=== PATIENT | female | born 1950 | race Two or more races ===

== ENCOUNTER 2025-04-09 02:40 | Emergency (ER) | payer MEDICARE, SELFPAY ==
[2025-04-09 02:41] VITALS: BMI 28.3
[2025-04-09 02:57] VITALS: BP 130/92; PULSE 83; RESP 19; TEMP 36.9; O2SAT 97
--- NOTE | 2025-04-09 03:02 | PD.EDALLER ---
ED Allergic Reaction RME/HPI General Chief complaint: Allergic Reaction Stated complaint: LIP SWELLING, ALLERGIC REACTION Time Seen by Provider: 04/09/25 02:58 Arrival date/time: 04/09/25 02:40 RME / HPI RME / HPI narrative: Dr. Turner?s Main ED Evaluation: 74yo female presents to the ED for complaints of facial swelling and generalized itching x 1 hour [employer]. Patient states she woke up at 0200 having itching throughout her body and noticed her lips were swollen. She denies any shortness of breath, rashes, or any other associated symptoms. Patient denies any history of similar symptoms. Related Data Previous Rx's ?Medication ?Instructions ?Recorded ibuprofen 800 mg tablet 800 mg PO TID PRN pain #30 tabs 07/05/19 gabapentin 300 mg capsule See Rx Instructions .Route 07/11/20 .COMPLEX #20 caps ibuprofen 800 mg tablet 800 mg PO TID PRN pain #30 tabs 07/11/20 canagliflozin 150 mg-metformin 500 1 tab PO BID #60 tabs 12/08/20 mg tablet (Invokamet) epinephrine 0.3 mg/0.3 mL 0.3 ml subcut PRN PRN 04/09/25 injection, auto-injector (EpiPen hypersensitivity reaction #1 applic 2-Teddy) Allergies Allergy/AdvReac Type Severity Reaction Status Date / Time No Known Allergies Allergy Verified 04/09/25 02:45 Review of Systems Review of Systems Systems Reviewed: All systems reviewed, normal except as documented Past Medical History Past Medical History NEUROLOGIC: Negative Seizures CARDIAC: Positive Hypertension; Negative Congestive Heart Failure RESPIRATORY: Negative Chronic Obstructive Pulmonary Disease (COPD) GENITOURINARY: Negative Renal Disease ENDOCRINE: Positive Diabetes Mellitus Type 2 (metformin); Negative Diabetes Mellitus Type 1 Social History SMOKING STATUS: Never smoker ED Exam Narrative Physical exam: Generally patient is alert and in no obvious distress, heart regular rate and rhythm, lungs clear to auscultation equal bilaterally, neck showed no stridor, facial swelling to the upper lip, oral pharynx shows normal-sized tongue, skin showed no rash at this time, neurologic exam Celina Coma Scale of 15 Course Quality Measures none Orders Category Date Time Status Dexamethasone Inj [Decadron Inj] Med 04/09/25 03:02 Discontinued 10 mg IVP X1 ONE DiphenhydrAMINE INJ [Benadryl Inj] Med 04/09/25 03:02 Discontinued 50 mg IVP X1 ONE Famotidine Inj [Pepcid Inj] Med 04/09/25 03:20 Discontinued 20 mg .ROUTE .STK-MED ONE Famotidine Inj [Pepcid Inj] Med 04/09/25 03:02 Discontinued 20 mg IVP X1 ONE Vital Signs Vital signs: Vital Signs Temperature 98.5 F 04/09/25 02:57 Pulse Rate 83 04/09/25 02:57 Respiratory Rate 19 04/09/25 02:57 Blood Pressure 130/92 H 04/09/25 02:57 Pulse Oximetry (%) 97 04/09/25 02:57 Oxygen Delivery Method Room Air 04/09/25 02:57 Allergic Reaction MDM Narrative MDM Narrative:: Scribe Attestation: 04/09/25 - Gloria Daily am scribing for and in the presence of Dr. Turner. Patient received Pepcid 20 mg IV, Benadryl 50 mg IV and Decadron 10 mg IV. Patient was observed for prolonged length of time without worsening of symptoms and without difficulty breathing, stridor or wheezing. O2 saturation was 99% on room air. Patient is not on antihypertensive medication. No LEONARD inhibitor. No angiotensin receptor hua. Patient will be discharged in stable condition. She will be given a prescription for an EpiPen to be used as needed. Patient data External records reviewed:: [facility] previous records (Per chart review, patient has no relevant previous ED visits.) Clinical information provided by:: patient Social determinants that could affect healthcare access:: none Patient has the following chronic illnesses:: HTN How is presenting disease/condition affected by chronic disease/condition?: uneffected by Evaluation data The following diagnostics were reviewed and interpreted by me:: other (specify) (none) Lab and/or radiology exams considered but not ordered:: none Interpretation Summary: none Medications / Prescriptions Medications or Prescriptions considered but not ordered:: none Medication administrations:: Medication Administration History Discontinued Medications Dexamethasone Sodium Phosphate (Dexamethasone Sod Phos Inj 10 Mg/Ml Vial) 10 mg IVP X1 ONE Stop: 04/09/25 03:03 Last Admin: 04/09/25 03:16 Dose: 10 mg Documented By: ASHLEY Diphenhydramine HCl (Diphenhydramine Inj 50 Mg/Ml Vial) 50 mg IVP X1 ONE Stop: 04/09/25 03:03 Last Admin: 04/09/25 03:16 Dose: 50 mg Documented By: ASHLEY Famotidine (Famotidine Inj 10 Mg/Ml Vial 2 Ml) 20 mg IVP X1 ONE Stop: 04/09/25 03:03 Last Admin: 04/09/25 03:22 Dose: 20 mg Documented By: ASHLEY Famotidine (Famotidine Inj 10 Mg/Ml Vial 2 Ml) Confirm Administered Dose 20 mg .ROUTE .STK-MED ONE Stop: 04/09/25 03:21 Last Admin: 04/09/25 03:53 Dose: Not Given Documented By: MARY Non-Admin Reason: Override Medication see above Consultations Consultation(s) initiated? (list below): No Diagnosis Differential Diagnosis allergic reaction: other (See MDM) Most likely diagnosis given after review of the tests above:: see clinical impression below Admission Indicated Admission indicated?: not indicated Admission Request Was there a request for admission?: No Disposition Plan Disposition Plan: Discharge Discharge Attestation Discharge Attestation: The patient and all family members were given an opportunity to ask questions and understood the discharge instructions. Discharge instructions specifically effects, indications for sooner follow up or return to the emergency department, and the expected course of current diagnosis. Patient condition: Stable Discharge Plan Plan Patient Disposition: HOME (Self Care) Prescriptions/Referrals Prescriptions/Med Rec: New epinephrine [EpiPen 2-Teddy] 0.3 mg/0.3 mL auto-injector 0.3 ml subcut PRN PRN (Reason: hypersensitivity reaction) Qty: 1 0RF No Action Invokamet 150-500 mg Tablet 1 tab PO BID Qty: 60 0RF ibuprofen 800 mg tablet 800 mg PO TID PRN (Reason: pain) Qty: 30 0RF ibuprofen 800 mg tablet 800 mg PO TID PRN (Reason: pain) Qty: 30 0RF gabapentin 300 mg capsule See Rx Instructions .ROUTE .COMPLEX Qty: 20 0RF Rx Instructions: 300mg po qday x1 then 300mg po BID x1 day then 300mg po tid Referrals: No Primary/Family,Physician [Primary Care Provider] - In 1 week Problem List Clinical Impression: Angioedema Patient/Caregiver Discharge Instructions Education Materials: ED Angioedema Additional Instructions: You may use the epinephrine pen as directed for shortness of breath or airway swelling. Return to ER as needed or if condition worsens. Print Language: [place] Stand Alone Forms: June Award Info., Patient Portal Info Letter
[2025-04-09] MEDS: DEXAMETHASONE SOD PHOS INJ 10 MG/ML VIAL IVP (03:16)
[2025-04-09] MEDS: FAMOTIDINE INJ 10 MG/ML VIAL 2 ML 20 MG IVP (03:22)
== END 2025-04-09 04:50 | disposition home or self-care (01) ==
PROVIDERS: Emergency Provider Emergency Medicine
DX: T78.3XXA Angioneurotic edema, initial encounter (principal); E11.9 Type 2 diabetes mellitus without complications; I10 Essential (primary) hypertension; Z79.84 Long term (current) use of oral hypoglycemic drugs
CPT/HCPCS: 96374; 96375; 99283; J1100; J1200; J3490